=== PATIENT | male | born 1935 | race Caucasian/White ===

== ENCOUNTER → 2017-08-24 09:54 | Outpatient (CLI) | payer OTHER, BC, SELFPAY ==
--- NOTE | 2017-08-24 09:56 | DI.RAD.S_ITS ---
PROCEDURE: XR KNEE LT 3V INDICATIONS: 82 year-old male with left knee pain and swelling. TECHNIQUE: 3 views of the knee were acquired. COMPARISON: None. FINDINGS: Bones: No fractures or dislocations. There is minimal knee joint degeneration. No suspicious bony lesions. Soft tissues: There is trace joint effusion. No suspicious soft tissue calcifications. There is mild popliteal and trifurcation atherosclerosis. IMPRESSION: Low-grade left knee joint degeneration, without acute bony injuries. Dictated by: Abraham Winslow M.D. on 08/24/2017 at 10:30 Approved by: Abraham Winslow M.D. on 08/24/2017 at 10:31
== END ==
PROVIDERS: Family Provider Family Medicine; PCP Family Medicine; Visit Provider Family Medicine
DX: M17.12 Unilateral primary osteoarthritis, left knee (principal); M25.562 Pain in left knee
CPT/HCPCS: 73562

== ENCOUNTER → 2017-09-01 08:02 | Outpatient (CLI) | payer OTHER, BC, SELFPAY ==
--- NOTE | 2017-09-01 08:03 | DI.MRI.S_ITS ---
PROCEDURE: MR KNEE LT WO CON INDICATIONS: left knee pain, no known injury TECHNIQUE: Noncontrast sagittal PD fast spin echo and T2 fast spin echo with fat saturation, sagittal 3-D FLASH with fat saturation; coronal T1 spin echo and PD fast spin echo with fat saturation, and axial PD fast spin echo with fat saturation through the knee. COMPARISON: [facility], CR, XR KNEE LT 3V, 08/24/2017, 9:55. FINDINGS: Image quality: Excellent. Menisci: There is irregular horizontally oriented tearing in the posterior horn of the medial meniscus along the inferior articular surface. Mild radial tearing is also demonstrated at the junction of the posterior horn and body. There is degenerative signal throughout the medial and lateral menisci. The meniscal root ligaments appear intact. Cruciate ligaments: The anterior cruciate ligament is intermediate in signal with mild periligamentous edema compatible with sequelae of a mild sprain or chronic myxoid degeneration. Medial structures: The medial collateral ligament appears attenuated with periligamentous edema consistent with sequelae of a mild sprain. The semimembranosus tendon insertions and meniscocapsular junction appear intact. Visualized portions of the pes anserinus tendons appear intact without associated bursal fluid collections. Lateral structures: The lateral collateral ligament, long and short heads of the biceps femoris tendon appear mildly attenuated in signal suggesting sequelae of mild sprain/strain. The popliteus tendon appears grossly intact but also appears mildly attenuated proximally suggestive of a mild strain. Iliotibial band appears normal. Anterior structures: The quadriceps and patellar tendons appear intact. There is mild tendinopathy in the proximal patella tendon. Patellar alignment is normal. No femoral trochlear dysplasia or ventral trochlear prominence. No edema in the infrapatellar fat pad. Bones and cartilage: No bone marrow contusions or fractures. There is moderate cartilage thinning in the medial compartment with mild chondral fissuring and mild subchondral edema along the medial tibial plateau. There is moderate cartilage thinning in the patellofemoral compartment with mild subchondral edema along the medial patellar facet. Joint space: There is a small joint effusion. No Salgado's cyst. Normal appearing synovial plicae are incidentally noted. IMPRESSION: 1. Complex tearing of the medial meniscus as described. 2. 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 3. Findings compatible with a mild sprain of the medial collateral ligament. A component of the edema may also reflect reactive changes secondary to meniscal tearing and chondral degeneration. 4. Attenuation of the LCL complex suggesting sequelae of a prior sprain/strain. 5. Small joint effusion. Dictated by: Mars Piper M.D. on 09/01/2017 at 9:21 Approved by: Mars Piper M.D. on 09/01/2017 at 10:08
== END ==
PROVIDERS: PCP Family Medicine; Visit Provider Family Medicine
DX: M25.562 Pain in left knee (principal); S83.242A Other tear of medial meniscus, current injury, left knee, initial encounter; M17.12 Unilateral primary osteoarthritis, left knee; M25.462 Effusion, left knee
CPT/HCPCS: 73721

== ENCOUNTER 2019-02-20 07:14 | Day surgery (SDC) | payer MEDICARE, OTHER, BC, SELFPAY ==
--- NOTE | 2019-02-19 16:57 | PM.PREOP ---
Pre-operative Note Interval Note History & Physical reviewed/Exam performed by Physician: Yes Changes to H&P: No
[2019-02-20] MEDS: PROPARACAINE 0.5% OPHTH SOL 2 DROPS EYE-OP (08:08)
[2019-02-20 08:10] VITALS: BP 158/76; PULSE 47; RESP 16; TEMP 36.6; O2SAT 99; BMI 23.2
[2019-02-20] MEDS: CATARACT EYE COMPOUND (10 DROPS/SYRINGE) 3 DROPS EYE-OP (08:17)
--- NOTE | 2019-02-20 08:24 | PM.OP.1 ---
Operative Date/Time/Diagnoses Date of procedure: 02/20/19 Time of procedure: 08:45 Procedure & Clinicians Procedure: Preoperative diagnoses: 1. 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 2. Mature or advanced nuclear sclerotic and cortical cataract with poor visibility of the anterior capsule increasing surgical risks of complications. Postoperative diagnoses: 1. Left complex surgery with use of capsular dye, 2. Placement of a posterior chamber intraocular lens implant. Surgeon: Mya Quintanilla MD Complications: none Specimen: None Implant: ZCT+225+18.0 [place] 090 Blood loss: None Anesthesia: Retrobulbar with monitored standby. Description of procedure: Dictated by: Mya Quintanilla MD Copy to: [facility] Post operative diagnoses: 1. Left complex cataract removed with use of Maluygin ring with placement of a posterior chamber intraocular lens. 2. Astigmatism which he likes to correct with a toric intra-ocular lens. 3. 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 4. Hypertension. Procedure: Phacoemulsification with posterior chamber intraocular lens implant Surgeon: Mya Quintanilla MD Blood loss: None Anesthesia: Retrobulbar with monitored standby Description of procedure: Patient has presented with decreased vision due to cataract which is affecting activities of daily living especially driving. He lives alone. Has astigmatism which she elects to correct with a toric intra-ocular lens implant. He also has poorly dilating pupil from floppy iris syndrome and a Maluygin ring will be needed. The patient wants surgery to improve vision. The patient was taken to the operating room and given IV sedation. Proparacaine drops were placed in indelible ink samson were placed at the 90 and 180 degree meridian. A retrobulbar block consisting of 6 cc of 2% xylocaine without epinephrine mixed half and half with 0.5% Marcaine with 1 cc of hyaluronidase added is placed between the medial and lateral 1/3 of the inferior orbital rim. Lid akinesia is obtain with 1% xylocaine with epinephrine infiltrated along the lid margin. The eye is manually massaged for 30 sec, prepped using Betadine solution, and draped in the usual sterile fashion. Temporal approach was made, a 1 mm side-port incision was performed 90 degrees from the planned corneal wound. Phenylephrine 1.5% mixed with 1% xylocaine 0.2 cc was placed into the anterior chamber. Viscoat followed by Healon was then placed. A 2.6 mm clear incision with a 2.6 mm blade was placed. A Maluygin ring of 7 mm was inspected and then opened in the anterior chamber. It was then sequentially placed in all quadrants of the iris. A 360 degree capsulorrhexis style capsulotomy was then performed with a cystitome needle on a Healon. Aided by the capsular ring. Hydrodelineation and hydrodissection were performed. The phacoemulsification unit is introduced, and sculpting used to groove the central lens. It is then removed in chopping mode. Epi nucleus is removed with epinuclear mode and irrigation aspiration was used to remove the peripheral cortex. The posterior capsule is polished. The intraocular lens is selected, inspected and rotated rotated to the desired meridian of 90?, power confirmed, and placed in the posterior chamber. The Maluygin ring was sequentially released from each quadrant of the iris placed in it unfolded removed in total from the eye. The pupil was not constricted with Miostat. The wound was stromally hydrated and tested for leaks, there was none and was left sutureless. Vigamox 0.1 cc was placed into the anterior chamber. Kenalog 0.2 cc was placed in the superior subconjunctival space. A drop of antibiotic and was placed and the eye was patched and shielded. The patient was stable and returned to the recovery room in excellent condition. Dictated by: Mya Quintanilla MD Copy to: [facility]
[2019-02-20] MEDS: LIDOCAINE 2% 4 ML, BUPIVACAINE 0.5% (PF) 4 ML, HYALURONIDASE 150 UNIT INJ (08:45)
--- NOTE | 2019-02-20 08:54 | SUR.OPER ---
Supine on eye stretcher, head on extension cradle secured with tape. Arms tucked at sides with blanket. Pillow under knees.
[2019-02-20] MEDS: MOXIFLOXACIN INJ 5 MG/ML VIAL EYE-OP (09:08)
[2019-02-20] MEDS: TRIAMCINOLONE 50 MG/5 ML VIAL INJ (09:09)
[2019-02-20] MEDS: HYALURONATE SODIUM 10 MG/ML SYRINGE INJ (09:10)
[2019-02-20] MEDS: CHONDROIDTIN/SOD HYALURONATE 1.05 ML SYRINGE INTRAOCULA (09:10)
[2019-02-20] MEDS: BALANCED SALT IRRIG SOLN NO.2 500 ML, EPINEPHrine 1 MG IRR (09:11)
[2019-02-20] MEDS: ERYTHROMYCIN OPHTH 1 GM OINT 1 APPLIC EYE-RIGHT (09:11)
[2019-02-20] MEDS: PHENYLEPHRINE/LIDOCAINE VIAL (OR) 0.2 ML EYE-OP (09:15)
[2019-02-20 09:43] VITALS: BP 162/85; PULSE 45; RESP 15; TEMP 36.6; O2SAT 97
== END 2019-02-20 10:08 | disposition home or self-care (01) ==
LOC: OR 07:18
PROVIDERS: PCP Student in an Organized Health Care Education/Training Program; Visit Provider Ophthalmology
PROC: (CPT 66982; principal; 2019-02-20 08:45)
DX: H25.11 Age-related nuclear cataract, right eye (principal); F41.9 Anxiety disorder, unspecified; I10 Essential (primary) hypertension; H21.81 Floppy iris syndrome; H52.209 Unspecified astigmatism, unspecified eye
CPT/HCPCS: 66982; J0171; J2250; J2704; J3010; J3301; J3470; V2787

== ENCOUNTER → 2022-06-16 12:38 | Outpatient (CLI) | payer MEDICARE, OTHER, SELFPAY ==
[2022-06-16 15:15] LABS: Prostate Specific Antigen 677 ng/mL (0.10-4.00)
== END ==
PROVIDERS: PCP Student in an Organized Health Care Education/Training Program; Referring Provider Urology; Visit Provider Urology
DX: R97.20 Elevated prostate specific antigen [PSA] (principal)
CPT/HCPCS: 36415; 84153

== ENCOUNTER → 2022-09-05 17:53 | Outpatient (CLI) | payer MEDICARE, OTHER, SELFPAY ==
[2022-09-05 19:22] LABS: Prostate Specific Antigen 22.1 ng/mL (0.10-4.00)
== END ==
PROVIDERS: Referring Provider Urology; Visit Provider Urology
DX: C61 Malignant neoplasm of prostate (principal); C79.51 Secondary malignant neoplasm of bone
CPT/HCPCS: 36415; 84153

== ENCOUNTER 2022-12-11 12:14 | Emergency (ER) | payer MEDICARE, OTHER, SELFPAY ==
[2022-12-11] VITALS (91 sets, daily range): BP systolic 70–168; BP diastolic 48–76; PULSE 33–111; RESP 4–39; TEMP 36.9; O2SAT 84–100; BMI 24.5
--- NOTE | 2022-12-11 12:18 | DI.CT.S_ITS ---
PROCEDURE: CT ANGIO CHEST ABDOMEN PELVIS INDICATIONS: Hypotension, back pain, eval for dissection TECHNIQUE: Precontrast 5 mm thick sections acquired from the lung apices to the iliac crests. After the administration of intravenous contrast, 2.5 mm thick sections again acquired from the lung apices to the iliac crests. Maximum intensity projection (MIP) oblique sagittal and coronal reformats were then acquired. For radiation dose reduction, the following was used: automated exposure control. COMPARISON: None. FINDINGS: Image quality: Excellent. 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 The right brachiocephalic and left carotid arteries are fed by the true lumen, with dissection flap extending into the left cephalic artery. The celiac axis is fed by the false lumen, as is the left renal artery. Remaining vessels are fed by the true lumen. CHEST: Lungs and pleura: No acute airspace opacities. No pleural effusions or pneumothorax. Central and peripheral airways are patent and normal in caliber. Mediastinum: Heart size is enlarged. No pericardial effusion. No mediastinal or hilar adenopathy by size criteria. Central pulmonary arteries are normal in size. Esophagus is normal in caliber. No hiatal hernias. Bones and chest wall: No axillary adenopathy by size criteria. Thyroid gland is unremarkable . No suspicious bony lesions. No vertebral body compression fractures. ABDOMEN: Vasculature: Celiac trunk and mesenteric arteries are patent. Renal arteries are also patent. Solid organs: Liver is normal in size and enhancement. Gallbladder is unremarkable . Biliary system is non dilated. Pancreas enhances normally. Spleen is normal in size and enhancement. No adrenal nodules. Both kidneys are normal in size and enhancement, without hydronephrosis. Peritoneum and bowel: No free fluid or air. Bowel loops are normal in caliber and wall thickness. Nodes and vessels: No retroperitoneal or mesenteric adenopathy by size criteria. Inferior vena cava is normal in morphology. Miscellaneous: No ventral hernias. PELVIS: Genitourinary: Bladder wall thickness is normal. Miscellaneous: No inguinal hernias or adenopathy. No ventral hernias. Bones: No suspicious bony lesions. No vertebral body compression fractures. Heterogeneous expansion of the left pubic bone. IMPRESSION: Type A aortic dissection, with the dissection flap extending into the left cephalic artery and terminating in the infrarenal aortic station. The false lumen feeds the celiac axis and left renal artery. 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 Findings discussed with Dr. Chino at 1:20 p.m. On 12/11/2022 Dictated by: Luis Alberto Mccloud M.D. on 12/11/2022 at 13:18 Approved by: Luis Alberto Mccloud M.D. on 12/11/2022 at 13:24
--- NOTE | 2022-12-11 12:18 | ED.GENADULT ---
HPI - General Adult General Chief complaint: Back Pain/Injury Stated complaint: back pain Time Seen by Provider: 12/11/22 12:18 Source: patient and EMS Mode of arrival: EMS Limitations: no limitations History of Present Illness HPI narrative: Patient is an 79-year-old male. Has a history of prostate cancer. Is currently being treated with Lupron shots. He denies any use of anticoagulation. No prior cardiac or respiratory or neurologic history. Takes no medications other than the Lupron. Stated that he was at his baseline state of health when he had a fairly sudden onset of discomfort in his back that radiated to his abdomen. Also states it radiated to his legs. He also had jaw pain. He denied chest pain or shortness of breath or lightheadedness. Denied any urinary symptoms. No change in bowel habits. His symptoms at the time my evaluation had improved from onset but not completely gone. He did receive aspirin prior to arrival. Has been bradycardic and hypotensive. He states his heart rate is normally in the 40s to low 50s. He also states that he thinks that he has a low blood pressure because whenever he takes his blood pressure at home it read ?low? he does not know any specific numbers. He denies any fevers. Related Data Previous Rx's Medication Instructions Recorded valacyclovir 500 mg tablet 500 mg PO QDAY #30 tabs 02/08/22 Allergies Allergy/AdvReac Type Severity Reaction Status Date / Time No Known Drug Allergies Allergy Verified 08/09/22 14:35 Review of Systems Review of Systems ROS Unobtainable: All systems reviewed & are unremarkable except as noted in HPI and below Patient History Medical History Allergic rhinitis (Unknown) Anxiety (Unknown) Basal cell carcinoma (~02/2006) Benign non-nodular prostatic hyperplasia without lower urinary tract symptoms (01/30/15) COPD (chronic obstructive pulmonary disease) (Unknown) Elevated PSA (Unknown) Essential hypertension (01/30/15) 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 Father No problems noted. Mother No problems noted. Grandfather No problems noted. Grandmother No problems noted. Grandfather No problems noted. Grandmother No problems noted. Social History household members: none Smoking Status: Former smoker Smoking Status: Former smoker Exam Initial Vital Signs Initial Vital Signs: Vital Signs Pulse Rate 44 L 12/11/22 12:16 Respiratory Rate 37 H 12/11/22 12:16 Pulse Oximetry 92 12/11/22 12:16 Const General: cooperative, comfortable and No ill appearing HENMT Head: normal to inspection and normocephalic Chest Chest: No tenderness Resp Effort & Inspection: normal respiratory effort Auscultation: clear to auscultation bilaterally Cardio Rate: bradycardic Rhythm: regular rhythm GI Inspection: normal to inspection and non-distended Palpation: soft, No firm, No guarding and No tender Back/Spine/Pelvis Back: No CVA tenderness Skin General: no rashes or lesions noted Neuro General: patient alert, patient awake, patient oriented x3 and moves all extremities Cognition: normal cognition Speech: speech normal Extrem General: capillary refill normal Scores GCS Xochitl coma scale eye opening: Spontaneous [place] coma scale verbal response: Orientated [place] coma scale motor response: Obey commands Xochitl coma scale total score: 15 Course Orders Ordered: ED Orders 12/11/22 12:18 CT angio chest abdomen pelvis Stat 12/11/22 12:19 EKG-12 Lead Stat 12/11/22 12:20 Complete Blood Count AUTO DIFF Stat Comprehensive Metabolic Panel Stat Lactate (Lactic Acid) Stat Lipase Stat Magnesium Stat PTT Partial Thromboplastin Vinod Stat Prothrombin Time INR Stat Troponin & CK Cardiac Panel Stat Type and Screen Stat 12/11/22 14:20 COVID19 -Nasal RAPID Stat Discontinued Medications Atropine Sulfate (Atropine 1 Mg/10 Ml Syringe) 0.5 mg IV NOW ONE Stop: 12/11/22 12:34 Last Admin: 12/11/22 12:36 Dose: 0.5 mg Documented By: MURRAY Sodium Chloride (Normal Saline 0.9%) 1,000 mls @ 500 mls/hr IV BOLUS ONE Stop: 12/11/22 14:17 Last Infusion: 12/11/22 15:43 Dose: 0 mls/hr Documented By: Admin: 12/11/22 12:43 Dose: 500 mls/hr Documented By: MURRAY Morphine Sulfate (Morphine 4 Mg/Ml Inj) 4 mg IV NOW ONE Stop: 12/11/22 12:42 Last Admin: 12/11/22 12:44 Dose: Not Given Documented By: MURRAY Vital Signs Vital signs: Vital Signs - 8 hr 12/11/22 12:32 12/11/22 12:16 12/11/22 12:17 Temperature 98.4 F Pulse Rate 40 L 44 L Respiratory Rate 20 37 H Blood Pressure 70/49 L 70/51 L Pulse Oximetry 99 92 Oxygen Delivery Method Room Air Oxygen Flow Rate 12/11/22 12:17 12/11/22 12:18 12/11/22 12:20 Temperature Pulse Rate 45 L 43 L 44 L Respiratory Rate 36 H 34 H 36 H Blood Pressure Pulse Oximetry 98 99 98 Oxygen Delivery Method Oxygen Flow Rate 12/11/22 12:22 12/11/22 12:23 12/11/22 12:23 Temperature Pulse Rate 44 L 44 L Respiratory Rate 29 H 33 H Blood Pressure 109/58 L Pulse Oximetry 99 97 Oxygen Delivery Method Room Air Oxygen Flow Rate 12/11/22 12:24 12/11/22 12:26 12/11/22 12:27 Temperature Pulse Rate 44 L 42 L Respiratory Rate 29 H 31 H Blood Pressure 86/54 L Pulse Oximetry 98 95 Oxygen Delivery Method Oxygen Flow Rate 12/11/22 12:27 12/11/22 12:28 12/11/22 12:30 Temperature Pulse Rate 40 L 40 L 36 L Respiratory Rate 27 H 28 H 25 H Blood Pressure Pulse Oximetry 99 84 L 100 Oxygen Delivery Method Oxygen Flow Rate 12/11/22 12:32 12/11/22 12:32 12/11/22 12:34 Temperature Pulse Rate 33 L 37 L Respiratory Rate 16 25 H Blood Pressure 100/52 L Pulse Oximetry 100 100 Oxygen Delivery Method Oxygen Flow Rate 12/11/22 12:35 12/11/22 12:35 12/11/22 12:36 Temperature Pulse Rate 35 L 34 L Respiratory Rate 22 29 H Blood Pressure 96/53 L Pulse Oximetry 100 99 Oxygen Delivery Method Oxygen Flow Rate 12/11/22 12:38 12/11/22 12:38 12/11/22 12:40 Temperature Pulse Rate 37 L Respiratory Rate 26 H Blood Pressure 111/56 L 128/60 Pulse Oximetry 97 Oxygen Delivery Method Oxygen Flow Rate 12/11/22 12:40 12/11/22 12:42 12/11/22 12:44 Temperature Pulse Rate 38 L 54 L 51 L Respiratory Rate 25 H 37 H 39 H Blood Pressure Pulse Oximetry 100 100 100 Oxygen Delivery Method Nasal Cannula Oxygen Flow Rate 2 12/11/22 12:45 12/11/22 12:45 12/11/22 12:46 Temperature Pulse Rate 50 L 50 L Respiratory Rate 35 H 16 Blood Pressure 168/76 H Pulse Oximetry 100 100 Oxygen Delivery Method Oxygen Flow Rate 12/11/22 12:48 12/11/22 12:48 12/11/22 12:50 Temperature Pulse Rate 51 L Respiratory Rate 30 H Blood Pressure 123/68 118/67 Pulse Oximetry 100 Oxygen Delivery Method Oxygen Flow Rate 12/11/22 12:50 12/11/22 12:52 12/11/22 12:54 Temperature Pulse Rate 48 L 48 L 47 L Respiratory Rate 32 H 17 31 H Blood Pressure Pulse Oximetry 100 100 100 Oxygen Delivery Method Oxygen Flow Rate 12/11/22 12:55 12/11/22 12:55 12/11/22 12:56 Temperature Pulse Rate 55 L 48 L Respiratory Rate 20 Blood Pressure 135/61 Pulse Oximetry 99 Oxygen Delivery Method Oxygen Flow Rate 12/11/22 12:58 12/11/22 13:00 12/11/22 13:00 Temperature Pulse Rate 48 L 48 L Respiratory Rate 19 22 Blood Pressure 119/72 Pulse Oximetry 99 100 Oxygen Delivery Method Oxygen Flow Rate 12/11/22 13:02 12/11/22 13:06 12/11/22 13:08 Temperature Pulse Rate 91 H 84 Respiratory Rate 17 22 Blood Pressure 99/51 L Pulse Oximetry 86 L 97 Oxygen Delivery Method Oxygen Flow Rate 12/11/22 13:08 12/11/22 13:10 12/11/22 13:10 Temperature Pulse Rate 86 83 Respiratory Rate 14 10 L Blood Pressure 90/64 Pulse Oximetry 98 98 Oxygen Delivery Method Oxygen Flow Rate 12/11/22 13:12 12/11/22 13:14 12/11/22 13:16 Temperature Pulse Rate 79 77 Respiratory Rate 16 14 Blood Pressure 89/56 L Pulse Oximetry 98 97 Oxygen Delivery Method Oxygen Flow Rate 12/11/22 13:16 12/11/22 13:18 12/11/22 13:20 Temperature Pulse Rate 77 75 76 Respiratory Rate 11 L 11 L 19 Blood Pressure Pulse Oximetry 98 96 97 Oxygen Delivery Method Oxygen Flow Rate 12/11/22 13:21 12/11/22 13:21 12/11/22 13:22 Temperature Pulse Rate 73 79 Respiratory Rate 31 H 29 H Blood Pressure 110/48 L Pulse Oximetry 93 96 Oxygen Delivery Method Nasal Cannula Oxygen Flow Rate 2 12/11/22 13:24 12/11/22 13:25 12/11/22 13:25 Temperature Pulse Rate 76 73 Respiratory Rate 23 22 Blood Pressure 95/49 L Pulse Oximetry 99 97 Oxygen Delivery Method Oxygen Flow Rate 12/11/22 13:26 12/11/22 14:05 12/11/22 14:06 Temperature Pulse Rate 71 55 L Respiratory Rate 33 H 30 H Blood Pressure 87/52 L Pulse Oximetry 97 96 Oxygen Delivery Method Room Air Oxygen Flow Rate 12/11/22 14:08 12/11/22 14:10 12/11/22 14:11 Temperature Pulse Rate 50 L 47 L Respiratory Rate 28 H 24 Blood Pressure 92/53 L Pulse Oximetry 96 96 Oxygen Delivery Method Nasal Cannula Oxygen Flow Rate 2 12/11/22 14:11 12/11/22 14:12 12/11/22 14:14 Temperature Pulse Rate 48 L 49 L 48 L Respiratory Rate 21 Blood Pressure Pulse Oximetry 98 100 100 Oxygen Delivery Method Oxygen Flow Rate 12/11/22 14:16 12/11/22 14:18 12/11/22 14:18 Temperature Pulse Rate 48 L 48 L Respiratory Rate 24 18 Blood Pressure 79/51 L Pulse Oximetry 98 Oxygen Delivery Method Oxygen Flow Rate 12/11/22 14:20 12/11/22 14:21 12/11/22 14:21 Temperature Pulse Rate 52 L 49 L Respiratory Rate 20 22 Blood Pressure 79/50 L Pulse Oximetry 99 99 Oxygen Delivery Method Oxygen Flow Rate 12/11/22 14:22 12/11/22 14:24 12/11/22 14:26 Temperature Pulse Rate 50 L 54 L 60 Respiratory Rate 28 H 32 H Blood Pressure Pulse Oximetry 100 99 99 Oxygen Delivery Method Oxygen Flow Rate 12/11/22 14:28 12/11/22 14:29 12/11/22 14:29 Temperature Pulse Rate 53 L 49 L Respiratory Rate 20 20 Blood Pressure 77/55 L Pulse Oximetry 100 99 Oxygen Delivery Method Oxygen Flow Rate 12/11/22 14:30 12/11/22 14:31 12/11/22 14:31 Temperature Pulse Rate 55 L 48 L Respiratory Rate 19 27 H Blood Pressure 97/57 L Pulse Oximetry 99 99 Oxygen Delivery Method Oxygen Flow Rate 12/11/22 14:32 12/11/22 14:34 12/11/22 14:35 Temperature Pulse Rate 49 L 48 L Respiratory Rate 31 H Blood Pressure 99/58 L Pulse Oximetry 100 99 Oxygen Delivery Method Oxygen Flow Rate 12/11/22 14:35 12/11/22 14:36 12/11/22 14:38 Temperature Pulse Rate 47 L 47 L 56 L Respiratory Rate 28 H 30 H Blood Pressure Pulse Oximetry 100 99 99 Oxygen Delivery Method Nasal Cannula Oxygen Flow Rate 2 12/11/22 14:40 12/11/22 14:40 12/11/22 14:42 Temperature Pulse Rate 45 L 48 L Respiratory Rate 31 H Blood Pressure 105/55 L Pulse Oximetry 100 100 Oxygen Delivery Method Oxygen Flow Rate 12/11/22 14:44 12/11/22 14:45 12/11/22 14:45 Temperature Pulse Rate 65 48 L Respiratory Rate 32 H Blood Pressure 86/53 L Pulse Oximetry 98 100 Oxygen Delivery Method Oxygen Flow Rate 12/11/22 14:46 12/11/22 14:48 12/11/22 14:50 Temperature Pulse Rate 59 L 62 111 H Respiratory Rate 39 H 31 H 33 H Blood Pressure Pulse Oximetry 98 97 98 Oxygen Delivery Method Oxygen Flow Rate 12/11/22 14:52 12/11/22 14:54 12/11/22 14:56 Temperature Pulse Rate 44 L 43 L 42 L Respiratory Rate 27 H 20 28 H Blood Pressure Pulse Oximetry 100 100 100 Oxygen Delivery Method Oxygen Flow Rate 12/11/22 14:58 12/11/22 14:58 12/11/22 15:00 Temperature Pulse Rate 48 L Respiratory Rate 32 H Blood Pressure 81/50 L 91/52 L Pulse Oximetry 98 Oxygen Delivery Method Oxygen Flow Rate 12/11/22 15:00 12/11/22 15:02 12/11/22 15:04 Temperature Pulse Rate 46 L 44 L 42 L Respiratory Rate 26 H 32 H 24 Blood Pressure Pulse Oximetry 100 99 99 Oxygen Delivery Method Oxygen Flow Rate 12/11/22 15:05 12/11/22 15:05 12/11/22 15:06 Temperature Pulse Rate 41 L 41 L Respiratory Rate 25 H 22 Blood Pressure 89/51 L Pulse Oximetry 99 100 Oxygen Delivery Method Oxygen Flow Rate 12/11/22 15:08 12/11/22 15:10 12/11/22 15:10 Temperature Pulse Rate 40 L 41 L Respiratory Rate 27 H 23 Blood Pressure 96/54 L Pulse Oximetry 99 100 Oxygen Delivery Method Oxygen Flow Rate 12/11/22 15:12 12/11/22 15:14 12/11/22 15:15 Temperature Pulse Rate 47 L 66 Respiratory Rate 30 H 35 H Blood Pressure 107/55 L Pulse Oximetry 100 97 Oxygen Delivery Method Oxygen Flow Rate 12/11/22 15:15 12/11/22 15:16 12/11/22 15:18 Temperature Pulse Rate 87 70 110 H Respiratory Rate 29 H 29 H Blood Pressure Pulse Oximetry 97 99 95 Oxygen Delivery Method Oxygen Flow Rate 12/11/22 15:20 12/11/22 15:20 12/11/22 15:22 Temperature Pulse Rate 53 L 106 H Respiratory Rate 20 4 L Blood Pressure 120/60 Pulse Oximetry 94 Oxygen Delivery Method Nasal Cannula Oxygen Flow Rate 2 Medical Decision Making Lab Data Lab results reviewed: Yes I reviewed the patient's lab results. 12/11/22 12:20 12/11/22 12:20 Labs: Lab Results 12/11/22 12/11/22 12/11/22 Range/Units 12:20 12:20 12:20 WBC 5.8 (4.5-11.0) X10^3/uL RBC 3.40 L (4.5-5.9) X10^6/uL Hgb 11.6 L (13.5-17.5) g/dL Hct 33.8 L (41-53) % MCV 99.4 (80-100) fL MCH 34.2 H (26-34) PG MCHC 34.4 (30-36) % RDW 13.1 (11.6-14.8) % Plt Count 188 (150-400) X10^3/uL Neut % (Auto) 73.8 (50-75) % Lymph % (Auto) 15.5 L (25-40) % Evans % (Auto) 6.7 (3-14) % Eos % (Auto) 3.1 (2-4) % Baso % (Auto) 0.9 (0-2) % Neut # (Auto) 4300 (3023-9875) /uL Lymph # (Auto) 900 L (5555-8154) /uL Evans # (Auto) 400 (0-900) /uL Eos # (Auto) 200 (0-450) /uL Baso # (Auto) 100 (0-100) /uL PT 11.0 (10.1-12.7) SECONDS INR 1.0 (0.9-1.3) APTT 29 (26-36) SECONDS Sodium 136 L (137-145) mmol/L Potassium 4.5 (3.4-5.1) mmol/L Chloride 104 (98-107) mmol/L Carbon Dioxide 24 (22-32) mmol/L BUN 30 H (9-20) mg/dL Creatinine 0.92 (0.66-1.25) mg/dL Estimated GFR > 60 (>60) mL/min BUN/Creatinine Ratio 32.6 H (6-22) Glucose 106 (80-110) mg/dL Lactate (0.7-2.1) mmol/L Calcium 9.6 (8.4-10.2) mg/dL Magnesium 2.0 (1.6-2.3) mg/dL Total Bilirubin 0.6 (0.2-1.3) mg/dL AST 34 (17-59) IU/L ALT 25 (<50) IU/L Alkaline Phosphatase 77 (38-126) U/L Total Creatine Kinase 75 (55-170) U/L Troponin I < 0.012 (0.01-0.034) ng/mL Total Protein 6.7 (6.3-8.2) g/dL Albumin 3.9 (3.5-5.0) g/dL Globulin 2.8 (1.7-4.1) g/dL Albumin/Globulin Ratio 1.4 (1.0-2.8) Lipase 408 H (23-300) U/L SARS-CoV-2 (PCR) (Negative) Blood Type Antibody Screen 12/11/22 12/11/22 12/11/22 Range/Units 12:20 12:20 14:20 WBC (4.5-11.0) X10^3/uL RBC (4.5-5.9) X10^6/uL Hgb (13.5-17.5) g/dL Hct (41-53) % MCV (80-100) fL MCH (26-34) PG MCHC (30-36) % RDW (11.6-14.8) % Plt Count (150-400) X10^3/uL Neut % (Auto) (50-75) % Lymph % (Auto) (25-40) % Evans % (Auto) (3-14) % Eos % (Auto) (2-4) % Baso % (Auto) (0-2) % Neut # (Auto) (5937-2179) /uL Lymph # (Auto) (6039-7208) /uL Evans # (Auto) (0-900) /uL Eos # (Auto) (0-450) /uL Baso # (Auto) (0-100) /uL PT (10.1-12.7) SECONDS INR (0.9-1.3) APTT (26-36) SECONDS Sodium (137-145) mmol/L Potassium (3.4-5.1) mmol/L Chloride (98-107) mmol/L Carbon Dioxide (22-32) mmol/L BUN (9-20) mg/dL Creatinine (0.66-1.25) mg/dL Estimated GFR (>60) mL/min BUN/Creatinine Ratio (6-22) Glucose (80-110) mg/dL Lactate 1.5 (0.7-2.1) mmol/L Calcium (8.4-10.2) mg/dL Magnesium (1.6-2.3) mg/dL Total Bilirubin (0.2-1.3) mg/dL AST (17-59) IU/L ALT (<50) IU/L Alkaline Phosphatase (38-126) U/L Total Creatine Kinase (55-170) U/L Troponin I (0.01-0.034) ng/mL Total Protein (6.3-8.2) g/dL Albumin (3.5-5.0) g/dL Globulin (1.7-4.1) g/dL Albumin/Globulin Ratio (1.0-2.8) Lipase (23-300) U/L SARS-CoV-2 (PCR) Negative (Negative) Blood Type O Negative Antibody Screen Negative Imaging Data CTA chest/abd/pelvis: Radiologist's Impression: PROCEDURE:? CT ANGIO CHEST ABDOMEN PELVIS ? INDICATIONS:? Hypotension, back pain, eval for dissection ? TECHNIQUE:? Precontrast 5 mm thick sections acquired from the lung apices to the iliac crests.? After the administration of intravenous contrast, 2.5 mm thick sections again acquired from the lung apices to the iliac crests.? Maximum intensity projection (MIP) oblique sagittal and coronal reformats were then acquired.? For radiation dose reduction, the following was used:? automated exposure control.? ? COMPARISON:? None. ? FINDINGS:? Image quality:? Excellent.? ? AORTA:? 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 The right brachiocephalic and left carotid arteries are fed by the true lumen, with dissection flap extending into the left cephalic artery.? The celiac axis is fed by the false lumen, as is the left renal artery.? Remaining vessels are fed by the true lumen. ? CHEST:? Lungs and pleura:? No acute airspace opacities.? No pleural effusions or pneumothorax.? Central and peripheral airways are patent and normal in caliber.? ? Mediastinum:? Heart size is enlarged.? No pericardial effusion.? No mediastinal or hilar adenopathy by size criteria.? Central pulmonary arteries are normal in size.? Esophagus is normal in caliber.? No hiatal hernias.? ? Bones and chest wall:? No axillary adenopathy by size criteria.? Thyroid gland is unremarkable .? No suspicious bony lesions.? No vertebral body compression fractures.? ? ? ABDOMEN:? Vasculature:? Celiac trunk and mesenteric arteries are patent.? Renal arteries are also patent.? ? Solid organs:? Liver is normal in size and enhancement.? Gallbladder is unremarkable .? Biliary system is non dilated.? Pancreas enhances normally.? Spleen is normal in size and enhancement.? No adrenal nodules.? Both kidneys are normal in size and enhancement, without hydronephrosis.? ? Peritoneum and bowel:? No free fluid or air.? Bowel loops are normal in caliber and wall thickness.? ? Nodes and vessels:? No retroperitoneal or mesenteric adenopathy by size criteria.? Inferior vena cava is normal in morphology.? ? Miscellaneous:? No ventral hernias.? ? ? PELVIS:? Genitourinary:? Bladder wall thickness is normal.? ? Miscellaneous:? No inguinal hernias or adenopathy.? No ventral hernias.? ? Bones:? No suspicious bony lesions.? No vertebral body compression fractures.? Heterogeneous expansion of the left pubic bone. ? ? IMPRESSION:? Type A aortic dissection, with the dissection flap extending into the left cephalic artery and terminating in the infrarenal aortic station.? The false lumen feeds the celiac axis and left renal artery. ? 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 ECG Data Attestation: I personally reviewed and interpreted this ECG as follows: Interpretation: Sinus rhythm Ventricular rate of 42 Left axis deviation LVH ST T wave changes MDM Narrative Medical decision making narrative: Patient is hypotensive and bradycardic but this potentially his not unusual for him per his report. His CT scan does show a type a aortic dissection that does extend to the infrarenal region. During his initial presentation and the amount of abdominal pain that he was get in I did give him some atropine which did improve his heart rate into the 70s. This was a sinus rhythm. He is not on any nikki blocking agents. Patient was not started on any hyper/hypotensive medication as we would like to keep his heart rate and blood pressure low. Patient does require transfer to a facility with CT surgery. Discussed the case with Dr. Ceballos who was on-call for CT surgery at [facility] and also Dr. Andrews tableau architect on-call who accepts the patient for transfer. Patient is a full code and would like transfer to at least discuss potential surgical options. She was stable for transport. Critical Care Time Critical Care Time Critical Care Time: Yes Total Critical Care Time: 35 Attestation: The high probability of a clinically significant, sudden or life threatening deterioration of the [cardiovascular] system(s) required my full and direct attention, intervention and personal management. The aggregate critical care time was [35] minutes. This time is in addition to time spent performing reported procedures but includes the following: [x] Data Review and interpretation [x] Patient assessment and monitoring of vital signs [x] Documentation [x] Medication orders and management Discharge Plan [facility] Imp[facility] A[facility] dissection, Bradycardia Prescriptions: No Action valacyclovir 500 mg tablet 500 mg PO QDAY Qty: 30 11RF Referrals: Miscellaneous,Doctor, MD [Primary Care Provider] -
[2022-12-11 12:30] LABS: Add Manual Diff / Slide Review NO; Basophils Absolute Auto 100 /uL (0-100); Basophils Percent Auto 0.9 % (0-2); Eosinophils Absolute Auto 200 /uL (0-450); Eosinophils Percent Auto 3.1 % (2-4); Hematocrit 33.8 % (41-53); Hemoglobin 11.6 g/dL (13.5-17.5); Lymphocytes Absolute Auto 900 /uL (1100-4500); Lymphocytes Percent Auto 15.5 % (25-40); Mean Corpuscular HGB Conc 34.4 % (30-36); Mean Corpuscular Hemoglobin 34.2 PG (26-34); Mean Corpuscular Volume 99.4 fL (80-100); Monocytes Absolute Auto 400 /uL (0-900); Monocytes Percent Auto 6.7 % (3-14); Neutrophils Absolute Auto 4300 /uL (1500-7000); Neutrophils Percent Auto 73.8 % (50-75); Platelet Count 188 X10^3/uL (150-400); Red Cell Distribution Width 13.1 % (11.6-14.8); White Blood Cell Count 5.8 X10^3/uL (4.5-11.0)
[2022-12-11] MEDS: ATROPINE 1 MG/10 ML SYRINGE 0.5 MG IV (12:36)
[2022-12-11 12:38] LABS: PTT Partial Thromboplastin Tim 29 SECONDS (26-36)
[2022-12-11 12:41] LABS: Alanine Aminotransferase 25 IU/L (<50); Albumin 3.9 g/dL (3.5-5.0); Albumin Globulin Ratio 1.4 (1.0-2.8); Alkaline Phosphatase 77 U/L (38-126); Aspartate Aminotransferase 34 IU/L (17-59); BUN Creatinine Ratio 32.6 (6-22); Bilirubin Total 0.6 mg/dL (0.2-1.3); Blood Urea Nitrogen 30 mg/dL (9-20); Calcium 9.6 mg/dL (8.4-10.2); Carbon Dioxide 24 mmol/L (22-32); Chloride 104 mmol/L (98-107); Creatine Kinase 75 U/L (55-170); Estimated Glomerular Filt Rate > 60 mL/min (>60); Globulin 2.8 g/dL (1.7-4.1); Glucose 106 mg/dL (80-110); HEMOLYSIS 39 (0-50); Lipase 408 U/L (23-300); Potassium 4.5 mmol/L (3.4-5.1); Sodium 136 mmol/L (137-145); Total Protein 6.7 g/dL (6.3-8.2)
[2022-12-11] MEDS: MORPHINE 2 MG/ML INJ 4 MG (12:41)
[2022-12-11 12:42] LABS: Lactate (Lactic Acid) 1.5 mmol/L (0.7-2.1)
[2022-12-11] MEDS: SODIUM CHLORIDE 0.9% 1,000 ML 500 ML IV (12:43)
[2022-12-11 12:53] LABS: Troponin I < 0.012 ng/mL (0.01-0.034)
--- NOTE | 2022-12-11 13:35 | PC.NURSE ---
returned from CT with chest pain, leg and back pain. Dr ceballos at bedside. pt is aaox4. called his son
[2022-12-11 14:48] LABS: COVID19 -Nasal RAPID Negative (Negative)
== END 2022-12-11 15:47 | disposition short-term general hospital (02) ==
PROVIDERS: Emergency Provider Emergency Medicine
DX: I71.00 Dissection of unspecified site of aorta (principal); R00.1 Bradycardia, unspecified; Z20.822 Contact with and (suspected) exposure to COVID-19
CPT/HCPCS: 36415; 71275; 74174; 80053; 82550; 83605; 83690; 83735; 84484; 85025; 85610; 85730; 86850; 86900; 86901; 87635; 93005; 96361; 96374; 96375; 99285; C9803; J0461; J2270; Q9967

== ENCOUNTER → 2023-02-01 15:15 | Outpatient (CLI) | payer MEDICARE, OTHER, SELFPAY ==
[2023-02-01 16:48] LABS: Add Manual Diff / Slide Review NO; Basophils Absolute Auto 100 /uL (0-100); Eosinophils Absolute Auto 100 /uL (0-450); Eosinophils Percent Auto 2.1 % (2-4); Hematocrit 30.3 % (41-53); Hemoglobin 10.2 g/dL (13.5-17.5); Lymphocytes Absolute Auto 1000 /uL (1100-4500); Lymphocytes Percent Auto 15.2 % (25-40); Mean Corpuscular HGB Conc 33.7 % (30-36); Mean Corpuscular Hemoglobin 32.5 PG (26-34); Mean Corpuscular Volume 96.4 fL (80-100); Monocytes Absolute Auto 600 /uL (0-900); Monocytes Percent Auto 8.5 % (3-14); Neutrophils Absolute Auto 4900 /uL (1500-7000); Neutrophils Percent Auto 73.2 % (50-75); Platelet Count 264 X10^3/uL (150-400); Red Blood Cell Count 3.14 X10^6/uL (4.5-5.9); Red Cell Distribution Width 13.9 % (11.6-14.8); White Blood Cell Count 6.6 X10^3/uL (4.5-11.0)
[2023-02-01 17:01] LABS: Alanine Aminotransferase 16 IU/L (<50); Albumin 3.9 g/dL (3.5-5.0); Albumin Globulin Ratio 1.2 (1.0-2.8); Alkaline Phosphatase 77 U/L (38-126); Aspartate Aminotransferase 24 IU/L (17-59); BUN Creatinine Ratio 28.6 (6-22); Bilirubin Total 0.4 mg/dL (0.2-1.3); Blood Urea Nitrogen 32 mg/dL (9-20); Calcium 9.6 mg/dL (8.4-10.2); Carbon Dioxide 26 mmol/L (22-32); Chloride 106 mmol/L (98-107); Estimated Glomerular Filt Rate > 60 mL/min (>60); Globulin 3.2 g/dL (1.7-4.1); Glucose 73 mg/dL (80-110); HEMOLYSIS < 15 (0-50); Potassium 5.1 mmol/L (3.4-5.1); Sodium 138 mmol/L (137-145); Total Protein 7.1 g/dL (6.3-8.2)
== END ==
PROVIDERS: PCP Family Medicine; Referring Provider Nurse Practitioner; Visit Provider Nurse Practitioner
DX: I71.03 Dissection of thoracoabdominal aorta (principal); Z98.890 Other specified postprocedural states
CPT/HCPCS: 36415; 80053; 85025

== ENCOUNTER → 2023-04-19 13:48 | Outpatient (CLI) | payer MEDICARE, SELFPAY ==
[2023-04-19 14:29] LABS: Add Manual Diff / Slide Review NO; Basophils Absolute Auto 100 /uL (0-100); Basophils Percent Auto 0.9 % (0-2); Eosinophils Absolute Auto 200 /uL (0-450); Eosinophils Percent Auto 2.4 % (2-4); Hematocrit 31.1 % (41-53); Hemoglobin 10.6 g/dL (13.5-17.5); Lymphocytes Absolute Auto 1000 /uL (1100-4500); Lymphocytes Percent Auto 14.5 % (25-40); Mean Corpuscular HGB Conc 34.1 % (30-36); Mean Corpuscular Hemoglobin 31.6 PG (26-34); Mean Corpuscular Volume 92.5 fL (80-100); Monocytes Absolute Auto 600 /uL (0-900); Monocytes Percent Auto 9.1 % (3-14); Neutrophils Absolute Auto 5000 /uL (1500-7000); Neutrophils Percent Auto 73.1 % (50-75); Platelet Count 261 X10^3/uL (150-400); Red Blood Cell Count 3.36 X10^6/uL (4.5-5.9); Red Cell Distribution Width 14.1 % (11.6-14.8); White Blood Cell Count 6.9 X10^3/uL (4.5-11.0)
[2023-04-19 14:48] LABS: HEMOLYSIS < 15 (0-50); Iron 60 ug/dL (49-181)
[2023-04-19 14:56] LABS: Alanine Aminotransferase 16 IU/L (<50); Albumin 3.8 g/dL (3.5-5.0); Albumin Globulin Ratio 1.1 (1.0-2.8); Alkaline Phosphatase 81 U/L (38-126); Aspartate Aminotransferase 24 IU/L (17-59); BUN Creatinine Ratio 26.4 (6-22); Bilirubin Total 0.4 mg/dL (0.2-1.3); Blood Urea Nitrogen 29 mg/dL (9-20); Calcium 9.5 mg/dL (8.4-10.2); Carbon Dioxide 25 mmol/L (22-32); Chloride 104 mmol/L (98-107); Estimated Glomerular Filt Rate > 60 mL/min (>60); Globulin 3.4 g/dL (1.7-4.1); Glucose 67 mg/dL (80-110); HEMOLYSIS < 15 (0-50); Potassium 4.6 mmol/L (3.4-5.1); Sodium 136 mmol/L (137-145); Total Protein 7.2 g/dL (6.3-8.2)
[2023-04-19 14:59] LABS: Percent Iron Saturation 23 % (20-50); Total Iron Binding Capacity 261 ug/dL (261-462); Transferrin 219 mg/dL (206-381)
[2023-04-19 15:40] LABS: Vitamin B12 913 pg/mL (239-931)
== END ==
PROVIDERS: PCP Family Medicine; Referring Provider Family Medicine; Visit Provider Family Medicine
DX: N40.0 Benign prostatic hyperplasia without lower urinary tract symptoms (principal); C61 Malignant neoplasm of prostate; D64.9 Anemia, unspecified
CPT/HCPCS: 36415; 80053; 82607; 83540; 83550; 85025

== ENCOUNTER → 2023-06-02 16:31 | Outpatient (CLI) | payer MEDICARE, SELFPAY ==
--- NOTE | 2023-06-02 16:34 | DI.RAD.S_ITS ---
PROCEDURE: XR RIBS RT MIN 3V W CXR 1V INDICATIONS: Right rib injury/thoracic back pain TECHNIQUE: 2 views of the ribs were acquired, along with a single view chest. COMPARISON: None. FINDINGS: Surgical changes and devices: Patient is status post median sternotomy. Bones and chest wall: There is a displaced posterior right 11th rib fracture. No other displaced rib fractures visualized. Lungs and pleura: No pleural effusions or pneumothorax. Lungs appear clear. Mediastinum: Mediastinal contours appear normal. Heart size is normal. IMPRESSION: Displaced 11th right posterior rib fracture. No other displaced rib fractures visualized. Dictated by: Wendy Bridges M.D. on 06/02/2023 at 17:06 Approved by: Wendy Bridges M.D. on 06/02/2023 at 17:08
--- NOTE | 2023-06-02 16:34 | DI.RAD.S_ITS ---
PROCEDURE: XR THORACIC SPINE 2V INDICATIONS: Right rib injury/thoracic back pain TECHNIQUE: 3 views of the thoracic spine were acquired. COMPARISON: [facility], CR, XR RIBS RT MIN 3V W CXR 1V, 06/02/2023, 16:37. FINDINGS: Bones: No fractures or dislocations. No suspicious bony lesions. 12 pairs of ribs are noted, and appear intact where visualized. Soft tissues: No paravertebral stripe thickening. IMPRESSION: No acute bony abnormality. Dictated by: Arturo Giraldo M.D. on 06/02/2023 at 17:02 Approved by: Arturo Giraldo M.D. on 06/02/2023 at 17:04
== END ==
PROVIDERS: PCP Family Medicine; Referring Provider Physician Assistant Surgical; Visit Provider Physician Assistant Surgical
DX: S22.31XA Fracture of one rib, right side, initial encounter for closed fracture (principal); S29.9XXA Unspecified injury of thorax, initial encounter; M54.6 Pain in thoracic spine; X58.XXXA Exposure to other specified factors, initial encounter
CPT/HCPCS: 71101; 72070

== ENCOUNTER → 2023-06-20 14:19 | Outpatient (CLI) | payer MEDICARE, SELFPAY ==
[2023-06-20 18:14] LABS: Prostate Specific Antigen 0.417 ng/mL (0.10-4.00)
== END ==
PROVIDERS: PCP Family Medicine; Referring Provider Urology; Visit Provider Urology
DX: C61 Malignant neoplasm of prostate (principal); C79.51 Secondary malignant neoplasm of bone
CPT/HCPCS: 36415; 84153

== ENCOUNTER → 2023-07-25 17:20 | Outpatient (CLI) | payer MEDICARE, SELFPAY ==
[2023-07-25 17:56] LABS: Add Manual Diff / Slide Review NO; Basophils Absolute Auto 0 /uL (0-100); Basophils Percent Auto 0.7 % (0-2); Eosinophils Absolute Auto 200 /uL (0-450); Eosinophils Percent Auto 2.5 % (2-4); Hematocrit 35.6 % (41-53); Lymphocytes Absolute Auto 1300 /uL (1100-4500); Lymphocytes Percent Auto 20.6 % (25-40); Mean Corpuscular HGB Conc 33.6 % (30-36); Mean Corpuscular Hemoglobin 32.2 PG (26-34); Mean Corpuscular Volume 95.9 fL (80-100); Monocytes Absolute Auto 600 /uL (0-900); Monocytes Percent Auto 9.5 % (3-14); Neutrophils Absolute Auto 4100 /uL (1500-7000); Neutrophils Percent Auto 66.7 % (50-75); Platelet Count 236 X10^3/uL (150-400); Red Blood Cell Count 3.71 X10^6/uL (4.5-5.9); Red Cell Distribution Width 13.6 % (11.6-14.8); White Blood Cell Count 6.2 X10^3/uL (4.5-11.0)
[2023-07-25 18:02] LABS: Reticulocyte Count, Percent 0.6 % (0.9-2.6)
[2023-07-25 18:07] LABS: HEMOLYSIS 17 (0-50); Iron 97 ug/dL (49-181)
[2023-07-25 18:09] LABS: Alanine Aminotransferase 23 IU/L (<50); Albumin 4.3 g/dL (3.5-5.0); Albumin Globulin Ratio 1.3 (1.0-2.8); Alkaline Phosphatase 82 U/L (38-126); Aspartate Aminotransferase 32 IU/L (17-59); BUN Creatinine Ratio 38.1 (6-22); Bilirubin Total 0.6 mg/dL (0.2-1.3); Blood Urea Nitrogen 32 mg/dL (9-20); Calcium 9.6 mg/dL (8.4-10.2); Carbon Dioxide 24 mmol/L (22-32); Chloride 111 mmol/L (98-107); Estimated Glomerular Filt Rate > 60 mL/min (>60); Globulin 3.2 g/dL (1.7-4.1); Glucose 85 mg/dL (80-110); HEMOLYSIS < 15 (0-50); Potassium 4.1 mmol/L (3.4-5.1); Sodium 140 mmol/L (137-145); Total Protein 7.5 g/dL (6.3-8.2)
[2023-07-25 18:19] LABS: Percent Iron Saturation 32 % (20-50); Total Iron Binding Capacity 299 ug/dL (261-462); Transferrin 226 mg/dL (206-381)
[2023-07-25 18:57] LABS: Vitamin B12 749 pg/mL (239-931)
== END ==
PROVIDERS: PCP Family Medicine; Referring Provider Family Medicine; Visit Provider Family Medicine
DX: D64.9 Anemia, unspecified (principal); I10 Essential (primary) hypertension; E78.00 Pure hypercholesterolemia, unspecified
CPT/HCPCS: 36415; 80053; 82607; 83540; 83550; 85025; 85045

== ENCOUNTER → 2024-02-12 16:01 | Outpatient (CLI) | payer MEDICARE, SELFPAY ==
[2024-02-12 16:30] LABS: Add Manual Diff / Slide Review NO; Basophils Absolute Auto 100 /uL (0-100); Basophils Percent Auto 0.8 % (0-2); Eosinophils Absolute Auto 200 /uL (0-450); Eosinophils Percent Auto 2.3 % (2-4); Hematocrit 35.9 % (41-53); Hemoglobin 11.9 g/dL (13.5-17.5); Lymphocytes Absolute Auto 1400 /uL (1100-4500); Lymphocytes Percent Auto 19.8 % (25-40); Mean Corpuscular HGB Conc 33.1 % (30-36); Mean Corpuscular Hemoglobin 31.6 PG (26-34); Mean Corpuscular Volume 95.3 fL (80-100); Monocytes Absolute Auto 700 /uL (0-900); Monocytes Percent Auto 9.4 % (3-14); Neutrophils Absolute Auto 4700 /uL (1500-7000); Neutrophils Percent Auto 67.7 % (50-75); Platelet Count 225 X10^3/uL (150-400); Red Blood Cell Count 3.77 X10^6/uL (4.5-5.9); Red Cell Distribution Width 14.3 % (11.6-14.8); White Blood Cell Count 6.9 X10^3/uL (4.5-11.0)
[2024-02-12 16:47] LABS: HEMOLYSIS < 15 (0-50); Iron 70 ug/dL (49-181)
[2024-02-12 16:57] LABS: Percent Iron Saturation 26 % (20-50); Total Iron Binding Capacity 267 ug/dL (261-462); Transferrin 240 mg/dL (206-381)
[2024-02-12 17:37] LABS: Vitamin B12 802 pg/mL (239-931)
== END ==
PROVIDERS: PCP Family Medicine; Referring Provider Family Medicine; Visit Provider Family Medicine
DX: D50.9 Iron deficiency anemia, unspecified (principal); Z79.899 Other long term (current) drug therapy
CPT/HCPCS: 36415; 82607; 83540; 83550; 85025